=== PATIENT | male | born 1965 | race Caucasian/White ===

== ENCOUNTER 2017-03-08 00:25 | Emergency (ER) | payer BC, OTHER ==
--- OUTSIDE RECORDS SUMMARY | 2017-03-08 00:29 | XMS | Continuity of Care Document ---
:1965 Author Organization [facility] Care Team Providers Name Role Phone BARBY JIMENEZ Admitting Physician BARBY JIMENEZ Attending Physician Hospital Admission Diagnosis Code Admission Diagnosis Date [id number] Open fracture of distal phalanx of finger Social History Element Description Code Description Smoking Status Code Start Date End Date System Smoking Status [id number] Former smoker SNOMED-CT Problems Code Code System Problem Name Start Date End Date Status 017076262 SNOMED-CT Laceration of finger 01/11/2017 Active 41574415 SNOMED-CT Hypertensive disorder 01/11/[address] Description 969060359 Drug Treatment Unknown Allergies No Known Allergies Results Radiology Results Order: [id number] XR HAND MIN 3VWSExam Completion Date:01/11/2017 17:23Procedure: XR HAND MIN 3VWS Exam Date: 01/11/2017 5:23 PMOrdering Provider: CATIA Trippinical Indication: partial amputationComparison: None Findings: There is a comminuted fracture involving the distal phalanx of the ring finger.Multiple radiopaque foreign bodies are seen within the soft tissues about thedistal phalanges of the third and fourth digits.Laceration is seen involving the distal ring finger. IMPRESSION:Comminuted fracture of the fourth distal phalanx.Punctate radiopaque foreign bodies in the distal third and fourth digit softtissues..This final report was electronically signed by Dr Carito Hurd MD 01/11/20176:18 PMDictated By: GINNY HURDKDate: 01/11/2017 18:24 Vital Signs Vitals Value Date Body Temperature 98.5 F 01/11/2017 Respiratory Rate 16 01/11/2017 O2% BldC Oximetry 96 01/11/2017 BP Systolic 174 mmHg 01/11/2017 BP Diastolic 96 mmHg 01/11/2017 Height 72 in 01/11/2017 Weight Measured 218.03 lbs 01/11/2017 BSA (Body Surface Area) 2.73967 01/11/2017 BMI (Body Mass Index) 29.8 01/11/2017 Plan of Care No data in the system Procedures Code Code System Procedure Name Target Site Date of Procedure XR HAND MIN 3VWS 01/11/2017 18:24 73152 CPT4 CLTX DSTL PHLNGL FX FNGR/THMB W/MANJ EA Encounters Date Code Diagnosis Status (ICD10) - [id number] DSPL FX DIST PHAL LT RF INIT OPN FX Active Immunizations No data in the system Functional Status Code Functional/Cognitive Condition Code System Date Status 744479434 Memory function normal [facility] 01/11/2017 Active 928319456 Mentally alert [facility] 01/11/2017 Active 704142064 Ability to perform activities of everyday [facility] 01/11/2017 Active life (observable entity) 497438395 [facility]able gait [facility]finding) [facility] Active Hospital Discharge Instructions No data in the system
--- OUTSIDE RECORDS SUMMARY | 2017-03-08 00:29 | XMS | Continuity of Care Document ---
:1965 Author Organization [facility] Care Team Providers Name Role Phone BARBY JIMENEZ Admitting Physician BARBY JIMENEZ Attending Physician Hospital Admission Diagnosis No data in the System Social History Element Description Code Description Smoking Status Code Start Date End Date System Smoking Status [id number] Former smoker SNOMED-CT Problems Code Code System Problem Name Start Date End Date Status 500508963 SNOMED-CT Laceration of finger 01/11/2017 Active 35765656 SNOMED-CT Hypertensive disorder 01/11/[address] Description 912152713 Drug Treatment Unknown Allergies No Known Allergies Results Radiology Results Order: [id number] XR HAND MIN 3VWSExam Completion Date:01/11/2017 17:23Procedure: [...] Dr Carito Hurd MD 01/11/20176:18 PMDictated By: Pennie HURDte: 01/11/2017 18:24 Vital Signs Vitals Value Date Body Temperature 98.5 F 01/11/2017 Respiratory Rate 16 01/11/2017 O2% BldC Oximetry 96 01/11/2017 BP Systolic 174 mmHg 01/11/2017 BP Diastolic 96 mmHg 01/11/2017 Height 72 in 01/11/2017 Weight Measured 218.03 lbs 01/11/2017 BSA (Body Surface Area) 2.41046 01/11/2017 BMI (Body Mass Index) 29.8 01/11/2017 Plan of Care No data in the system Procedures Code Code System Procedure Name Target Site Date of Procedure XR HAND MIN 3VWS 01/11/2017 18:24 Encounters No data in the system Immunizations No data in the system Functional Status Code Functional/Cognitive Condition Code System Date Status 037872241 Memory function normal [facility] 01/11/2017 Active 091011947 Mentally alert [facility] 01/11/2017 Active 601072864 Ability to perform activities of everyday [facility] 01/11/2017 Active life (observable entity) 118414175 Stable gait (finding) [facility] 01/11/2017 Active Hospital Discharge Instructions No data in the system
[2017-03-08] MEDS ORDERED: Lidocaine Viscous Sol 2% 15 ml UD Cup ONE (02:02)
[2017-03-08] MEDS ORDERED: Famotidine/PF 20 mg/2ml Vial ONE (02:02)
[2017-03-08] MEDS ORDERED: Mag-Al 1200 mg/1200 mg/30 ML UDCUP ONE (02:02)
[2017-03-08] MEDS ORDERED: ISOVUE-370 76%-LOCM 1 ML ONE (02:13)
[2017-03-08] MEDS ORDERED: Iopamidol 370 76% 50 ML VIAL FS ONE (02:13)
[2017-03-08 02:28] LABS: #Basophils 0.1 thou/uL (0.0-0.2); #Eosinphils 0.4 thou/uL (0.0-0.7); #Lymphocytes 3.9 thou/uL (1.20-3.40); #Monocytes 0.9 thou/uL (0.11-0.59); #Neutrophils 8.9 thou/uL (1.40-6.50); %Basophils 0.9 % (0.0-1.0); %Eosinophils 3.1 % (0.0-10.0); %Lymphocytes 27.3 % (21.0-51.0); %Monocytes 6.4 % (0.0-10.0); Hematocrit 44.1 % (42.0-52.0); Mean Platelet Volume 7.8 fL (7.4-10.4); Red Blood Cell (RBC) Count 4.53 mill/uL (4.70-6.10); White Blood Cell (WBC) Count 14.3 thou/uL (4.8-10.8)
[2017-03-08 02:33] LABS: Lactic Acid - Sepsis 2.2 mmol/L (0.5-2.2)
[2017-03-08 02:37] LABS: ALT (SGPT) 13 U/L (8-55); AST (SGOT) 10 U/L (5-34); Alkaline Phosphatase 67 U/L (40-150); Anion Gap 15 mmol/L (10-20); BUN (Urea Nitrogen) 19 mg/dL (8.4-25.7); Bilirubin, Total 0.2 mg/dL (0.2-1.2); Calc. Creatinine Clearance 0 mL/min (70-130); Carbon Dioxide 23 mmol/L (22-29); Chloride 103 mmol/L (98-107); Estimated GFR-MDRD Greater than 90; Globulin 2.7 g/dL (2.4-3.5); Lipase 144 U/L (8-78)
[2017-03-08 02:38] LABS: PTT 27.4 SEC (22.9-36.1); Prothrombin Time 12.6 SEC (12.0-14.7)
[2017-03-08] MEDS ORDERED: Ondansetron HCl/PF 4 MG/2 ML Vial ONE (02:51)
[2017-03-08 03:12] LABS: Troponin I Less than 0.010 ng/mL (< 0.028)
--- NOTE | 2017-03-08 07:56 | CT ---
PRELIMINARY REPORT/[facility]/EMERGENCY AFTER HOURS PROCEDURE: EXAM: CT Abdomen and Pelvis With Intravenous Contrast CLINICAL HISTORY: 51 years old, male; Pain; Abdominal pain; Localized; Upper; Patient HX: 51 yo m presents to ed C/O c ramping upper abdominal pain that started day evening, worsened at 2100 tonight. Pt reports the pain sometimes radiates up r chest. Pt denies pain like this in the past. Denies h/o heart burn. Denies bowel complaints, denies n/v. Pt reports last bm was this morning and normal, no blood, no da rk stools. Denies fever. Denies h/o abdominal surgeries or pancreatitis. Pmhx hypertension and dm. TECHNIQUE: Axial computed tomography images of the abdomen and pelvis with intravenous contrast. Coronal reformatted images were created and reviewed. CONTRAST: 95 mL of ISOVUE 370 administered intravenously. COMPARISON: No relevant prior studies available. FINDINGS: The lung bases are clear. Suspect very mild inflammatory changes around the head and uncinate process of the pancreas, suspici ous for possible acute pancreatitis. Please correlate with clinical and laboratory evaluation. No peripancreatic or retroperitoneal fluid. No pseudocyst. No significant pancreatic duct dilation. The pancreas appears to enhance homogeneously. No definite gallbladder abnormality by CT. No biliary tree dilation. Ultrasound could be more sensitive for detecting gallstones, if clinically needed. Probable 2 cm right renal cyst. No hydronephrosis of either kidney. No visible ureteral calculus. There is fatty infiltration of the liver. The liver appears mildly enlarged, with right lobe length of about 20 cm. No definite/significant focal hepatic abnormality. Unremarkable appearance of the spleen, and adrenal glands. Possibility of slightly thickened mucosa/wall in the distal antrum of the stomach. This is a nonspec [facility] appearance, and could well be transient on CT, but could also represent evidence for gastritis or peptic ulcer disease. Please correlate clinically. No free air, ascites, or significant bowel distention. No evidence for abdominal aortic aneurysm. No retroperitoneal adenopathy. CT pelvis: The appendix is visualized and appears normal. There are no CT findings to strongly suggest diverticulitis. No abnormal mass or fluid collection in the pelvis. IMPRESSION: Findings that raise suspicious for mild acute pancreatitis, see above discussion. Unremarkable gallbladder by CT. No free air or significant bowel distention. Possible thickened mucosa/wall in the distal stomach, see above discussion. Normal appendix. No diverticulitis. Other findings discussed above. Thank you for allowing us to participate in the care of your patient. Dictated and Authenticated by: Aakash Mcdowell MD 03/08/2017 4:45 AM Central Time ([place] \T\ [place]) FINAL REPORT CT ABDOMEN AND PELVIS WITH ORAL AND IV CONTRAST: I agree with the preliminary report given by Dr. Aakash Mcdowell of [facility]. POS: [facility]
== END 2017-03-08 05:48 | disposition home or self-care (01) ==
LOC: ERS 00:25
DX: K85.90 Acute pancreatitis without necrosis or infection, unspecified (principal); E11.9 Type 2 diabetes mellitus without complications; E78.5 Hyperlipidemia, unspecified; I10 Essential (primary) hypertension; F17.210 Nicotine dependence, cigarettes, uncomplicated; Z79.899 Other long term (current) drug therapy
CPT/HCPCS: 74177; 80053; 82553; 83605; 83690; 84484; 85025; 85610; 85730; 93005; 96361; 96374; 96375; 99406; J2270; J2405; S0028